=== PATIENT | female | born 1950 | race Caucasian/White ===

== ENCOUNTER → 2017-02-17 | Outpatient (CLI) | payer OTHER ==
--- NOTE | 2017-02-17 16:19 | MRI ---
STUDY: MRI OF THE CERVICAL SPINE HISTORY: Cervicalgia. Neck tightness and pain on the right side of the neck and trapezius. Comparison: None. Technique: Multiplanar multisequence MRI of the cervical spine was obtained utilizing standard [facility] mental protocol. Findings: There is straightening of the upper cervical lordosis at C2-C4. Vertebral body heights and alignment are otherwise within normal limits. There is T2 prolongation in the odontoid process, with extension into the lateral mass of C2 and possibly proximal posterior arch. This may represent marrow edema. Th e remaining cervical vertebral bodies show heterogeneous but age-appropriate marrow signal. There is multilevel degenerative disk disease and degenerative endplate change. The cervical spinal cord itsel f is normal in morphology and signal intensity. There is no evidence of cord compression. Axial images: C2 -- C3: Normal. C3 -- C4: There is a posterior disc osteophyte complex. The central canal neural foramina are adequat e. C4 -- C5: There is a shallow posterior disc osteophyte complex and bilateral uncovertebral osteophyte formation. There is mild central canal stenosis. There is moderate left neural foraminal stenosis. C5 -- C6: There is a posterior disc osteophyte complex and bilateral uncovertebral osteophyte formati on. The combination of these findings results in mild central canal stenosis. There is mild to modera te right neural foraminal stenosis. Left neural foramen appears adequate. C6 -- C7: There is a posterior disc osteophyte complex and bilateral uncovertebral osteophyte formati on. The central canal and neural foramina are adequate. C7 -- T1: Normal. IMPRESSION: 1. Multilevel cervical spondylosis as described, most notable at C4/5 and C5/6. 2. Mild spinal stenosis at C4/5 and C5/6. 3. Multilevel neural foraminal stenosis. Please see above for detail. 4. T2 signal abnormality within the odontoid process extending into the lateral mass of C2 on the rig ht and possibly the proximal posterior arch. This is finding suggests the presence of marrow edema. C orrelation with CT of the cervical spine is recommended to exclude a fracture deformity. Would consid er additional MR images with gadolinium and fat suppressed post gadolinium T1 weighted images to furt her evaluate these findings, and to exclude a neoplastic process. Reported By:
== END | disposition home or self-care (01) | DRG 552 ==
LOC: RAD 09:53
PROVIDERS: ATTEND Internal Medicine
DX: M54.2 Cervicalgia (principal); M47.892 Other spondylosis, cervical region; M48.02 Spinal stenosis, cervical region; R60.0 Localized edema
CPT/HCPCS: 72141

== ENCOUNTER 2022-10-06 17:25 | Observation (INO) ==
--- NOTE | 2022-10-06 17:48 | ED.ABDFE ---
HPI Time Seen Time Seen by Provider: 10/06/22 17:48 Complaint Doctors Chief Complaint Comments: 72 y/o female presents for evaluation. Pt developed RLQ pain over the past two days. Started wtih R low back discomfort. Moved to the RLQ yesterday. Was worse yesterday. Saw her PCP today, hada negative urine in the office, was sent here for outpatient testing. Pt had a CBC, CMP (which are acceptable), and a CT of the abd/pelvis. CT report + for acute appendicitis (based on dilated appendix, 9 mm, and adjacent edema). Her provider could not get in touch with surgery, so sent here. Has been running low grade temps. Having occasional nausea, vomited once yesterday. Denies bowel/bladder complaints. Appetite off a bit. Reviewed Nurses Notes Review: Yes Source History Provided: Patient PMH PMH Past Medical History: Yes Past Medical History Comment: Osteoarthritis, Hyperlipidemia, osteoporosis, hypo thyroidism Family History History of Family Medical Conditions: No Social History Does patient currently use any type of tobacco product: No Alcohol Use: None Do you use any recreational Drugs:: No ROS Review of Systems Constitutional: Fever Eyes: No Symptoms Reported ENTM: No Symptoms Reported Respiratoy: No Symptoms Reported Cardiovascular: No Symptoms Reported Gastrointestinal/Abdominal: See HPI Genitourinary: No Symptoms Reported Neurological: No Symptoms Reported Musculoskeletal: No Symptoms Reported Integumentary: No Symptoms Reported Hematologic/Lymphatic: No Symptoms Reported All Other Systems: Reviewed and Negative PE Vital Signs Vitals: Temperature 99.6 F Pulse Rate 96 Respiratory Rate 18 Blood Pressure 132/81 O2 Sat by Pulse Oximetry 97 General General Appearance: Alert and In No Apparent Distress Eyes Eye exam: PERRL and EOMI ENT ENT Exam: Normal Oropharynx and Mucous Membranes Moist Neck Neck Exam: Normal Inspection Respiratory Respiratory Exam: Normal Lung Sounds Bilat; negative Accessory Muscle Use or Respiratory Distress Cardiovascular Cardiovascular Exam: Regular Rate, Normal Rhythm and Normal Heart Sounds Abdominal Exam Abdominal Exam: Normal Bowel Sounds, Soft and Tenderness (RLQ - with guarding/rebound. + Rovsing's sign.) Back Back Exam: Normal Inspection Extremeties Extremities Exam: Normal Inspection and Full ROM; negative Edema Neurologic Neurological Exam: Alert, Oriented X3 and CN II-XII Intact; negative Motor Sensory Deficit Skin Skin Exam: Warm and Dry COURSE Treatment Treatment: 72 y/o female with RLQ abdominal pain over the past [address] done today c/w acute appendicitis. IV fluids started. CBC, CMP from earlier today reviewed. Dr Abdullahi, organizational development director for surgery, notified. He is coming to take the pt to the OR. [facility] Labs Reviewed Laboratory: Specimen Type Clean catch urine 10/06/22 17:50 Urine Color Yellow (YELLOW) 10/06/22 17:50 Urine Appearance Clear (CLEAR) 10/06/22 17:50 Urine pH 7.0 (5.0 - 8.0) 10/06/22 17:50 Ur Specific [place] 1.020 (1.000-1.030) 10/06/22 17:50 Urine Protein Negative (NEGATIVE) 10/06/22 17:50 Urine Glucose (UA) Negative (NEGATIVE) 10/06/22 17:50 Urine Ketones Negative (NEGATIVE) 10/06/22 17:50 Urine Blood 1+ (NEGATIVE) 10/06/22 17:50 Urine Nitrite Negative (NEGATIVE) 10/06/22 17:50 Urine Bilirubin Negative (NEGATIVE) 10/06/22 17:50 Urine Urobilinogen 1+ (NORMAL) 10/06/22 17:50 Ur Leukocyte Esterase Negative (NEGATIVE) 10/06/22 17:50 Urine RBC 0-2 /HPF (0-3) 10/06/22 17:50 Urine WBC 0-2 /HPF (0-5) 10/06/22 17:50 Ur Squamous Epith Cells Rare /HPF (NEGATIVE) 10/06/22 17:50 Amorphous Sediment 1+ /HPF (NEGATIVE) 10/06/22 17:50 Urine Bacteria Trace /HPF (NEGATIVE) 10/06/22 17:50 Granular Casts Rare /LPF (NEGATIVE) 10/06/22 17:50 Ur Culture Indicated? No/not indicated 10/06/22 17:50 U/A normal. Opioid Opioid Risk Tool Total: 0 Total Score Risk Category: Low Risk Copyright: Wander GOMEZ predicting aberrant behaviors Discharge Plan Diagnosis Discharge Problem: Acute appendicitis Discharge Plan Patient Disposition: 09 ADMITTED INPATIENT Condition: Stable Prescriptions: No Action atorvastatin 40 mg tablet 1 tab PO QDAY minocycline 100 mg capsule 1 cap PO BID levothyroxine 112 mcg tablet 1 tab PO QDAY ezetimibe 10 mg tablet 1 tab PO QDAY fenofibrate 160 mg tablet 1 tab PO QDAY Health Concerns: Post Hospitalization: new medications and changes needed to prevent readmission or further decline. Pt educated and given instructions on all concerns. Plan of Treatment: Continue with present treatment and follow up plan. Pt is to keep follow up appointment as instructed and take medications as ordered. Follow ups/Referrals Follow ups/Referrals: TRAVON SHINE [Primary Care Provider] - 3 days
[2022-10-06] MEDS ORDERED: NS 1,000 ML IV 1,000 ML ONE (17:56)
[2022-10-06 18:03] LABS: BILIRUBIN,URINE NEGATIVE (NEGATIVE); BLOOD/HEMOGLOBIN,URINE 1+ (NEGATIVE); GLUCOSE, URINE NEGATIVE (NEGATIVE); KETONES,URINE NEGATIVE (NEGATIVE); LEUKOCYTE ESTERASE ,URINE NEGATIVE (NEGATIVE); NITRITES,URINE NEGATIVE (NEGATIVE); PROTEIN,URINE NEGATIVE (NEGATIVE); UROBILINOGEN,URINE 1+ (NORMAL)
[2022-10-06 18:12] LABS: APPEARANCE,URINE CLEAR (CLEAR); BACTERIA,URINE TRACE /HPF (NEGATIVE); COLOR,URINE YELLOW (YELLOW); GRANULAR CASTS,URINE RARE /LPF (NEGATIVE); RBC,URINE 0-2 /HPF (0-3); SQUAMOUS EPITHELIAL CELL,UR RARE /HPF (NEGATIVE)
[2022-10-06] MEDS: NS 1,000 ML IV 1,000 ML IV SCH (18:16)
[2022-10-06] MEDS ORDERED: MARCAINE/EPINEPHRINE ONE (18:30)
--- NOTE | 2022-10-06 18:41 | EKG ---
Test Reason : PRE-OP Blood Pressure : */* mmHG Vent. Rate : 89 BPM Atrial Rate : 89 BPM P-R Int : 166 ms QRS Dur : 92 ms QT Int : 352 ms P-R-T Axes : 35 -4 49 degrees QTc Int : 428 ms Normal sinus rhythm Septal infarct , age undetermined Abnormal ECG No previous ECGs available Confirmed by Markell Recio ([id number]) on 10/07/2022 5:52:18 PM Referred By: Confirmed By: Markell Recio
[2022-10-06] MEDS ORDERED: NS 100 ML IV 100 ML ONE (18:54)
[2022-10-06] MEDS ORDERED: ANCEF VIAL 1 GRAM ONE (18:54)
[2022-10-06] MEDS ORDERED: QUELICIN (OR ANECTINE) ONE (19:16)
[2022-10-06] MEDS ORDERED: ZOFRAN INJ 4 MG VIAL ONE (19:16)
[2022-10-06] MEDS ORDERED: FENTANYL VIAL INJ 250 mcg ONE (19:16)
[2022-10-06] MEDS ORDERED: BRIDION ONE (19:16)
[2022-10-06] MEDS ORDERED: PEPCID 20 MG VIAL ONE (19:16)
[2022-10-06] MEDS ORDERED: VERSED ONE (19:16)
[2022-10-06] MEDS ORDERED: ZEMURON 100 MG VIAL ONE (19:16)
[2022-10-06] MEDS ORDERED: DIPRIVAN VIAL 20 ML ONE (19:16)
[2022-10-06] MEDS ORDERED: SUPRANE ONE (19:21)
--- NOTE | 2022-10-06 19:24 | DR.H&P ---
H&P History & Physical for Day of: H&P Date: 10/06/22 Chief Complaint Chief Complaint: Right lower quadrant abdominal pain Allergies Allergies Allergy/AdvReac Type Severity Reaction Status Date / Time Penicillins Allergy Verified 10/06/22 18:36 History of Present Illness History of Present Illness: 72 year old female otherwise healthy with onset yesterday of the diffuse lower abdominal pain now relocated to the right lower quadrant. CT scan consistent with acute appendicitis. Past Medical History Past Medical History: Dyslipidemia and Hypothyroidism Additional Medical History: neck pain Social History Does patient currently use any type of tobacco product: No Have you used tobacco products in the last 12 months: No Type of Tobacco Use: None Does any household member use tobacco: No Alcohol Use: None Medications Home Medications: Penicillins Allergy (Verified 10/06/22 18:36) CONTINUE taking the following medications atorvastatin 40 mg tablet 1 tab PO QDAY 10/06/22 [History] ezetimibe 10 mg tablet 1 tab PO QDAY 10/06/22 [History] fenofibrate 160 mg tablet 1 tab PO QDAY 10/06/22 [History] levothyroxine 112 mcg tablet 1 tab PO QDAY 10/06/22 [History] minocycline 100 mg capsule 1 cap PO BID 10/06/22 [History] Labs Labs: Laboratory Specimen Type Clean catch urine 10/06/22 17:50 Urine Color Yellow (YELLOW) 10/06/22 17:50 Urine Appearance Clear (CLEAR) 10/06/22 17:50 Urine pH 7.0 (5.0 - 8.0) 10/06/22 17:50 Ur Specific [place] 1.020 (1.000-1.030) 10/06/22 17:50 Urine Protein Negative (NEGATIVE) 10/06/22 17:50 Urine Glucose (UA) Negative (NEGATIVE) 10/06/22 17:50 Urine Ketones Negative (NEGATIVE) 10/06/22 17:50 Urine Blood 1+ (NEGATIVE) 10/06/22 17:50 Urine Nitrite Negative (NEGATIVE) 10/06/22 17:50 Urine Bilirubin Negative (NEGATIVE) 10/06/22 17:50 Urine Urobilinogen 1+ (NORMAL) 10/06/22 17:50 Ur Leukocyte Esterase Negative (NEGATIVE) 10/06/22 17:50 Urine RBC 0-2 /HPF (0-3) 10/06/22 17:50 Urine WBC 0-2 /HPF (0-5) 10/06/22 17:50 Ur Squamous Epith Cells Rare /HPF (NEGATIVE) 10/06/22 17:50 Amorphous Sediment 1+ /HPF (NEGATIVE) 10/06/22 17:50 Urine Bacteria Trace /HPF (NEGATIVE) 10/06/22 17:50 Granular Casts Rare /LPF (NEGATIVE) 10/06/22 17:50 Ur Culture Indicated? No/not indicated 10/06/22 17:50 WBC=8.6, BMP WNL Review of Systems Constitutional: See HPI Eyes: No Symptoms Reported ENT: No Symptoms Reported Respiratory: No Symptoms Reported Cardiovascular: No Symptoms Reported Gastrointestinal: See HPI Genitourinary: No Symptoms Reported Musculoskeletal: No Symptoms Reported Skin: No Symptoms Reported Neurological: No Symptoms Reported Physical Exam Vital Signs: Temperature 99.6 F Pulse Rate 96 Respiratory Rate 18 Blood Pressure 132/81 O2 Sat by Pulse Oximetry 97 Oriented: Normal, Time, Person and Place Eyes: Normal Ear: Normal Nose: Normal Throat: Normal Respiratory: Clear Throughout Cardiovascular: Normal : Normal Auscultation: Bowel Sounds: Normal Palpation: Normal Tenderness: RLQ (WITH MILD REBOUND) Skin: Normal Musculoskeletal: Normal Psychiatric: Normal Mood Description: Calm Affect: Normal Speech Pattern: Clear Assessment/Plan (1) Acute appendicitis: Status: Acute Plan: Plan laparoscopic appendectomy . Risks and benefits discussed with her and her including bleeding, infection and possible bowel leak. Small possibility of having to convert to open operation discussed and she agrees to proceed.
--- NOTE | 2022-10-06 20:06 | OR.IMMED ---
IMMEDIATE POST-OP NOTE Immediate Post-Op Note Pre-Op Diagnosis: acute appendicitis Post-Op Diagnosis: same Procedure: laparoscopic appendectomy Description of Procedure: see operative summary Surgeon/Retail Pricing Coordinator: Kaylen Findings: early acute appendicitis Specimens Removed: appendix Estimated Blood Loss: minimal Drains: NONE Complications: none Progress Notes: To floor, po antibiotics , diet, probably home in AM. Final Diagnosis: as above
[2022-10-06] MEDS ORDERED: PERCOCET TAB 5/325 MG PO PRN (20:13)
[2022-10-06] MEDS ORDERED: ZOFRAN INJ 4 MG VIAL IVP PRN ×2 (20:14→20:17)
[2022-10-06] MEDS ORDERED: BENADRYL INJ 50 MG VIAL IVP PRN (20:17)
[2022-10-06] MEDS ORDERED: REGLAN INJ 10 MG VIAL IVP PRN (20:17)
[2022-10-06] MEDS ORDERED: BARHEMSYS INJ IVP PRN (20:17)
[2022-10-06] MEDS ORDERED: DILAUDID INJ IVP PRN (20:17)
[2022-10-06] MEDS: CIPRO TAB 500 MG PO SCH (21:10)
[2022-10-06] MEDS: LR 1,000 ML IV 1,000 ML IV SCH (21:11)
[2022-10-06 21:41] VITALS: BMI 21.2
--- NOTE | 2022-10-07 00:44 | DR.OPNOTE ---
OP NOTE Pre-Op Diagnosis: acute appendicitis Post-Op Diagnosis: same Procedure Date Date Of Procedure: 10/06/22 Procedure: PROCEDURE: LAPAROSCOPIC APPENDECTOMY NARRATIVE : The patient was taken to the operative suite and placed in the supine position. General anesthesia induced. The entire abdomen prepped and draped in sterile fashion. Time out for the procedure obtained . 5 mm incision was made lateral to the left rectus sheath online with the umbilicus and a 5 mm Optical trocar used to enter the abdomen. Abdomen insufflated to 15 mm of Hg with carbon dioxide. A 5 mm trocar was placed in the abdomen above the pubic tubercles under direct vision. A 12 mm trocar placed in the left lower quadrant under direct vision. Appendix was easily identified and the mesentery and base of the appendix divided with with one fire the CHANO stapler. The appendix placed in a specimen bag and brought out through the left lower quadrant trocar site. The trocar replaced . Abdomen was irrigated and suctioned free. There was one small bleeding area of the staple line cauterized. All trocars removed. All incisions irrigated with saline and closed with 3- 0 Vicryl interrupted subcutaneous sutures and steri- strips . A total of 20 cc of 0.5% Marcaine distributed between the three laparoscopic incisions. Patient extubated and taken to the PACU in good condition. Type of Anesthesia: General Anesthetic w/ETT Findings: acute appendicitis Specimen/Pathology: appendix Type of Fluids Used:: Lactated Ringers EBL: minimal Drains/Tubes Placed: None Complications:: none Needle/Sponge Count:: correct Disposition/Condition: Pt. tolerated procedure without difficulty. Extubated in the OR and taken to PACU in stable condition.
[2022-10-07] MEDS: NS 1,000 ML IV 1,000 ML IV SCH (04:13)
[2022-10-07] MEDS: LR 1,000 ML IV 1,000 ML IV SCH (05:50)
[2022-10-07] MEDS ORDERED: SYNTHROID 112 mcg TAB PO SCH (06:30)
[2022-10-07] MEDS: CIPRO TAB 500 MG PO SCH (08:35)
[2022-10-07] MEDS ORDERED: LIPITOR TAB 40 MG PO SCH ×2 (09:00→21:00)
[2022-10-07] MEDS ORDERED: TRICOR TAB 160 MG PO SCH ×2 (09:00→21:00)
[2022-10-07] MEDS ORDERED: ZETIA TAB 10 MG PO SCH ×2 (09:00→21:00)
[2022-10-07 10:00] VITALS: BP 130/60
--- NOTE | 2022-10-07 10:00 | W.DIS.FURT ---
Summary of Discharge Discharge Summary of Date Date of Exam: 10/07/22 Admission Date Date of Admission: 10/06/22 Admission Diagnosis Patient Problems (Updated 10/06/22 @ 18:52 by Roger Choudhury) Acute appendicitis (Acute) K35.80 Hospital Course: This healthy 71 year old female presented with right lower quadrant pain and tenderness. CT consistent with acute appendicitis .Had uncomplicated laparos copic appendentomy. Doing well. D/C today on her home medications plus Cipro, 500 mg, 1 po BID and Percocet PRN for pain. She will f/u in 1 week. Encourage ambulation . Vital Signs: Vital Signs (72 hours) 10/06/22 17:25 10/06/22 20:12 10/06/22 20:17 Temperature 99.6 F 97.4 F L Pulse Rate 96 H 85 90 Respiratory Rate 18 16 17 Blood Pressure 132/81 128/60 133/56 O2 Sat by Pulse Oximetry 97 99 100 Oxygen Delivery Method Room Air Aerosol Face Tent Aerosol Face Tent 10/06/22 20:22 10/06/22 20:27 10/06/22 20:32 Temperature Pulse Rate 88 85 87 Respiratory Rate 16 17 17 Blood Pressure 132/61 137/64 138/62 O2 Sat by Pulse Oximetry 100 100 100 Oxygen Delivery Method Aerosol Face Tent Nasal Cannula Nasal Cannula 10/06/22 20:38 10/06/22 20:42 10/06/22 21:00 Temperature 99.1 F Pulse Rate 85 83 84 Respiratory Rate 17 18 18 Blood Pressure 136/64 142/65 138/57 O2 Sat by Pulse Oximetry 99 99 96 Oxygen Delivery Method Nasal Cannula Nasal Cannula Room Air 10/06/22 21:00 10/06/22 20:56 10/06/22 22:32 Temperature Pulse Rate Respiratory Rate 18 18 Blood Pressure O2 Sat by Pulse Oximetry Oxygen Delivery Method Room Air 10/06/22 21:15 10/06/22 21:30 10/06/22 21:45 Temperature Pulse Rate 89 90 90 Respiratory Rate 25 H 22 22 Blood Pressure 137/64 130/60 133/63 O2 Sat by Pulse Oximetry 96 96 98 Oxygen Delivery Method Room Air Room Air Room Air 10/06/22 22:00 10/06/22 23:00 10/07/22 00:00 Temperature 99.6 F Pulse Rate 89 92 H 80 Respiratory Rate 24 22 19 Blood Pressure 144/65 148/67 126/60 O2 Sat by Pulse Oximetry 97 96 96 Oxygen Delivery Method Room Air Room Air Room Air 10/06/22 23:32 10/07/22 01:00 10/07/22 02:00 Temperature Pulse Rate 72 68 Respiratory Rate 20 20 18 Blood Pressure 118/56 117/57 O2 Sat by Pulse Oximetry 96 95 Oxygen Delivery Method Room Air Room Air 10/07/22 03:00 10/07/22 04:00 10/07/22 05:00 Temperature 98.8 F Pulse Rate 72 64 64 Respiratory Rate 18 22 23 Blood Pressure 123/60 108/59 107/57 O2 Sat by Pulse Oximetry 96 96 95 Oxygen Delivery Method Room Air Room Air Room Air 10/07/22 05:59 10/07/22 07:00 10/07/22 07:00 Temperature Pulse Rate 70 80 Respiratory Rate 20 19 Blood Pressure 107/57 147/67 O2 Sat by Pulse Oximetry 96 95 Oxygen Delivery Method Room Air Room Air Room Air Labs: Laboratory Last Values Specimen Type Clean catch urine 10/06/22 17:50 Urine Color Yellow (YELLOW) 10/06/22 17:50 Urine Appearance Clear (CLEAR) 10/06/22 17:50 Urine pH 7.0 (5.0 - 8.0) 10/06/22 17:50 Ur Specific [place] 1.020 (1.000-1.030) 10/06/22 17:50 Urine Protein Negative (NEGATIVE) 10/06/22 17:50 Urine Glucose (UA) Negative (NEGATIVE) 10/06/22 17:50 Urine Ketones Negative (NEGATIVE) 10/06/22 17:50 Urine Blood 1+ (NEGATIVE) 10/06/22 17:50 Urine Nitrite Negative (NEGATIVE) 10/06/22 17:50 Urine Bilirubin Negative (NEGATIVE) 10/06/22 17:50 Urine Urobilinogen 1+ (NORMAL) 10/06/22 17:50 Ur Leukocyte Esterase Negative (NEGATIVE) 10/06/22 17:50 Urine RBC 0-2 /HPF (0-3) 10/06/22 17:50 Urine WBC 0-2 /HPF (0-5) 10/06/22 17:50 Ur Squamous Epith Cells Rare /HPF (NEGATIVE) 10/06/22 17:50 Amorphous Sediment 1+ /HPF (NEGATIVE) 10/06/22 17:50 Urine Bacteria Trace /HPF (NEGATIVE) 10/06/22 17:50 Granular Casts Rare /LPF (NEGATIVE) 10/06/22 17:50 Ur Culture Indicated? No/not indicated 10/06/22 17:50 Reason For Visit: ACUTE APPENDICITIS Discharge Date Discharge Date: 10/07/22 Discharge Diagnosis All Active Problems (Updated 10/06/22 @ 18:52 by Roger Choudhury) Acute appendicitis (Acute) Plan of Treatment: Continue with present treatment and follow up plan. Pt is to keep follow up appointment as instructed and take medications as ordered. Discharge Medications Discharge Medications: Penicillins Allergy (Verified 10/06/22 18:36) CONTINUE taking the following medications atorvastatin 40 mg tablet 1 tab PO QDAY 10/06/22 [History] ezetimibe 10 mg tablet 1 tab PO QDAY 10/06/22 [History] fenofibrate 160 mg tablet 1 tab PO QDAY 10/06/22 [History] levothyroxine 112 mcg tablet 1 tab PO QDAY 10/06/22 [History] minocycline 100 mg capsule 1 cap PO BID 10/06/22 [History] Cipro 500mg , 1 po BID Percocet 5/325 mg , i po q 6 Hr PRN pain Discharge Disposition Discharge Disposition: home Discharge Condition: good Discharge Plan Discharge Plan Hospital Course: This healthy 71 year old female presented with right lower quadrant pain and tenderness. CT consistent with acute appendicitis .Had uncomplicated laparoscopic appendentomy. Doing well. D/C today on her home medications plus Cipro, 500 mg, 1 po BID and Percocet PRN for pain. She will f/u in 1 week. Encourage ambulation . Patient Disposition: , SELF-CARE Condition: Stable Health Concerns: Post Hospitalization: new medications and changes needed to prevent readmission or further decline. Pt educated and given instructions on all concerns. Care Plan Goals: Problem: Impaired Skin Integrity Goal: Improved Skin Integrity Instructions: Follow provided instructions. Follow up with primary physician as directed. Contact primary care physician or report to the closest Emergency Room if condition worsens. Plan of Treatment: Continue with present treatment and follow up plan. Pt is to keep follow up appointment as instructed and take medications as ordered. Prescriptions: New ciprofloxacin HCl [Cipro] 500 mg tablet 500 mg PO BID Qty: 10 0RF oxycodone-acetaminophen [Percocet] 5-325 mg tablet 1 tab PO Q6H MDD 4 PRNQty: 20 0RF Continued atorvastatin 40 mg tablet 1 tab PO QDAY minocycline 100 mg capsule 1 cap PO BID levothyroxine 112 mcg tablet 1 tab PO QDAY ezetimibe 10 mg tablet 1 tab PO QDAY fenofibrate 160 mg tablet 1 tab PO QDAY Orders to Discharge Patient Discharge Orders: Discharge (Routine); Ordered 10/07/22 Ordered By: Stevenson Abdullahi Follow ups/Referrals Follow ups/Referrals: Stevenson Abdullahi [STAFF PHYSICIAN] - 10/13/22 3:30 pm TRAVON SHINE [Primary Care Provider] - 10/19/22 11:00 am Instructions Instructions: Laparoscopic Appendectomy, Adult, Care After, [id number] Activity Restrictions/Additional Instructions: Rest today, increase activity with walking on Tuesday. Keep incision clean and dry, shower daily blot dry. Stand Alone Forms: Excuse From Work or School
== END 2022-10-07 10:50 | disposition home or self-care (01) ==
LOC: ER 17:25 → ICU 17:25
PROVIDERS: ADMIT Surgery; ATTEND Surgery
PROC: APPYLAP (ICD-10-PCS; 2022-10-06 19:30)
DX: K57.30 Diverticulosis of large intestine without perforation or abscess without bleeding; E78.2 Mixed hyperlipidemia; R10.84 Generalized abdominal pain; E03.8 Other specified hypothyroidism; R10.31 Right lower quadrant pain; K44.9 Diaphragmatic hernia without obstruction or gangrene; R11.0 Nausea; K35.890 Other acute appendicitis without perforation or gangrene